=== PATIENT | female | born 1955 | race Caucasian/White ===

== ENCOUNTER 2019-08-20 12:38 | Emergency (ER) | payer BC ==
[~2019-08-20] VITALS: Ht 147.3 cm; Wt 48.0 kg
[2019-08-20 14:26] VITALS: BP 152/62
--- NOTE | 2019-08-20 14:55 | NUR ---
vasc at bedside.
--- NOTE | 2019-08-20 15:44 | NUR ---
MEDICAL RECORDS RELEASE FAXED TO [facility]OUS [facility]
[2019-08-20] MEDS ORDERED: OLANZapine 2.5MG tablet PO ONE (15:50)
[2019-08-20] MEDS ORDERED: RISP1TAB3 PO (16:47)
== END 2019-08-20 17:22 | disposition home or self-care (01) ==
LOC: ER 12:38
DX: S90.121A Contusion of right lesser toe(s) without damage to nail, initial encounter (principal); F31.60 Bipolar disorder, current episode mixed, unspecified; E11.9 Type 2 diabetes mellitus without complications; F31.9 Bipolar disorder, unspecified; Z98.890 Other specified postprocedural states; Z79.899 Other long term (current) drug therapy; X58.XXXA Exposure to other specified factors, initial encounter; Y93.89 Activity, other specified; Y92.89 Other specified places as the place of occurrence of the external cause; Y99.8 Other external cause status
CPT/HCPCS: 73660; 82948; 93922; 99284

== ENCOUNTER 2019-08-27 10:42 | Emergency (ER) | payer BC ==
[~2019-08-27] VITALS: Ht 149.9 cm; Wt 76.4 kg
[~2019-08-27 10:42] MED LIST: RISP1TAB3 PO
[2019-08-27] MEDS: LORazepam 2 mg/ml vial IM ONE ×2 (10:55→11:49)
[2019-08-27] MEDS ORDERED: haloperidol lactate 5mg/ml inj IM ONE (10:55)
[2019-08-27] MEDS ORDERED: ziprasidone IM 20mg inj **IM only IM ONE (11:00)
[2019-08-27 11:20] LABS: BASOPHILS # (AUTO) 0.1 X10'3 (0-0.2); BASOPHILS % (AUTO) 1.2 % (0-1); EOSINOPHILS # (AUTO) 0.2 X10'3 (0-0.9); EOSINOPHILS % (AUTO) 3.7 % (0-6); HEMATOCRIT 40.4 % (35.0-45.0); HEMOGLOBIN 13.5 g/dl (12.0-16.0); LYMPHOCYTES # (AUTO) 0.8 X10'3 (1.1-4.8); LYMPHOCYTES % (AUTO) 17.7 % (21-51); MEAN CORPUSCULAR HEMOGLOBIN 28.9 PG (27.0-31.0); MEAN CORPUSCULAR HGB CONC 33.4 g/dL (33.0-36.5); MEAN CORPUSCULAR VOLUME 86.7 FL (78-98); MEAN PLATELET VOLUME 8.9 FL (7.4-10.4); MONOCYTES # (AUTO) 0.4 X10'3 (0-0.9); MONOCYTES % (AUTO) 8.4 % (2-12); NEUTROPHILS # (AUTO) 3.1 X10'3 (1.8-7.7); PLATELET COUNT 202 X10'3 (140-440); RED BLOOD COUNT 4.66 X10'6 (4.20-5.60); RED CELL DISTRIBUTION WIDTH 15.5 % (11.5-14.5); WHITE BLOOD COUNT 4.5 X10'3 (4.5-11.0)
[2019-08-27 11:31] LABS: CLARITY,URINE SLIGHTLY CLOUDY (Clear); COLOR,URINE YELLOW (Yellow); GLUCOSE, URINE NEGATIVE (Neg); KETONES,URINE 15 mg/dl (Neg); LEUKOCYTE ESTERASE ,URINE NEGATIVE (Neg); NITRITES, URINE POSITIVE (Neg); OCCULT BLOOD,URINE TRACE-INTACT (Neg); PROTEIN,URINE 30 mg/dl (Neg); UROBILINOGEN,URINE 0.2 E.U/dL (0.2-1.0)
[2019-08-27 11:32] LABS: ALANINE AMINOTRANSFERASE 34 U/L (12-78); ALBUMIN/GLOBULIN RATIO 1.1 (1.1-1.5); ALKALINE PHOSPHATASE 73 IU/L (46-116); ANION GAP 14 (8-16); ASPARTATE AMINO TRANSFERASE 29 U/L (10-37); BILIRUBIN,TOTAL 0.6 MG/DL (0.1-1.0); BLOOD UREA NITROGEN 23 MG/DL (7-18); BUN/CREATININE RATIO 17.2 (6.6-38.0); CHLORIDE 105 MMOL/L (99-107); CREATININE 1.34 MG/DL (0.40-0.90); GLUCOSE 224 MG/DL (70-104); POTASSIUM 4.2 MMOL/L (3.5-5.1); SODIUM 145 MMOL/L (135-145); TOTAL CARBON DIOXIDE 25.9 MMOL/L (24-32); TOTAL PROTEIN 7.5 G/DL (6.4-8.2); eGFR 40 ML/MIN
[2019-08-27 11:34] LABS: UA COLLECTION TYPE CLN CATCH MIDSTREAM
[2019-08-27 11:36] LABS: BACTERIA,URINE 4+ /HPF (Neg); MUCUS STRANDS NONE SEEN /LPF (Neg); RBC,URINE 0-2 /HPF (0-2); SQUAMOUS EPITHELIAL CELL,UR FEW /LPF (FEW); WBC CLUMPS,URINE FEW /HPF (NEGATIVE)
[2019-08-27 11:42] LABS: ETHANOL < 0.010 GM/DL (0.0-0.010)
[2019-08-27 11:44] LABS: URINE AMPHETAMINE SCREEN NEGATIVE (Neg); URINE BARBITUATE SCREEN NEGATIVE (Neg); URINE BENZODIAZEPINES SCREEN NEGATIVE (Neg); URINE CANNABINOID SCREEN POSITIVE (Neg); URINE COCAINE SCREEN NEGATIVE (Neg); URINE METHADONE SCREEN NEGATIVE (Neg); URINE OPIATE SCREEN POSITIVE (Neg); URINE PHENCYCLIDINE SCREEN NEGATIVE (Neg)
[2019-08-27] MEDS: cephalexin 500mg capsule PO SCH ×2 (12:02→21:15)
--- NOTE | 2019-08-27 12:17 | NUR ---
PT REFUSED ATIVAN, AGREED TO WEAR GREEN SCRUBS AFTER SECURITY CALLED TO ROOM.
--- NOTE | 2019-08-27 16:15 | NUR ---
Patient arrived from the main ER accompanied by RN. Ambulates herself, no distress observed. Patient is hyperverbal with some disorganized and pressures speech. She is tangential and does not answer assessment questions appropriately. She does not answer questions regarding home medications and history. Received in report she has a history of Bipolar dosirder. She is currently laying in bed talking to other patients, eating her lunch.
--- NOTE | 2019-08-27 17:50 | NUR ---
Patient is observed ambulating with walker from bathroom. Patient is now sitting on the edge of the bed and appears to be talking to herself/responding to internal stimuli.
[2019-08-27] MEDS ORDERED: RISP1TAB3 PO (18:37)
[2019-08-27] MEDS ORDERED: PRAV20TA4 PO (18:37)
[2019-08-27] MEDS ORDERED: GLIP5TAB13 PO (18:37)
[2019-08-27] MEDS ORDERED: LOSA25TA41 PO (18:37)
[2019-08-27] MEDS ORDERED: OXYB10TA30 PO (18:37)
[2019-08-27] MEDS ORDERED: TRAZ150T78 PO (18:37)
[2019-08-27] MEDS: oxybutynin 5mg tablet PO SCH (20:00)
[2019-08-27] MEDS ORDERED: diphenhydrAMINE 50 mg/ml inj IM ONE (21:00)
[2019-08-27] MEDS ORDERED: risperiDONE 0.5mg tablet PO SCH (21:00)
[2019-08-27] MEDS ORDERED: LORazepam 2 mg/ml vial IM ONE (21:00)
[2019-08-27] MEDS ORDERED: traZODone 150mg tablet PO SCH (21:00)
--- NOTE | 2019-08-27 22:00 | NUR ---
Patient increasingly agitated and argumentative. wants to go to the cafeteria, told her its closed and not possible. Didn't eat her dinner, just made a mess of it. Offered a sandwich, she refused. attempted to leave the unit, had to call security twice, IM medications ordered and administered. Patient now sleeping
--- NOTE | 2019-08-28 07:00 | NUR ---
Assisted pt up to bathroom. Pt uses walker. Waiting for breakfast.
[2019-08-28] MEDS ORDERED: losartan 25mg tablet PO SCH (08:00)
[2019-08-28] MEDS ORDERED: atorvastatin 10mg tablet PO SCH (08:00)
[2019-08-28] MEDS ORDERED: glipizide 5mg tablet PO SCH (08:00)
[2019-08-28] MEDS: cephalexin 500mg capsule PO SCH ×2 (08:33→12:42)
[2019-08-28] MEDS: oxybutynin 5mg tablet PO SCH (08:33)
[2019-08-28] MEDS ORDERED: insulin regular, human 10 units/0.1 ml syringe SQ ONE (08:50)
[2019-08-28] MEDS ORDERED: insulin regular, human U-100 3ml vial - multi-dose SQ ONE (08:55)
--- NOTE | 2019-08-28 09:00 | NUR ---
Pt ate all her breakfast and took all her meds. Received call from Chen in [facility] that they are looking at her and will let me know if they can accept her.
--- NOTE | 2019-08-28 10:14 | NUR ---
PATIENT HAS NUMEROUS REQUESTS FOR WARM FOOD AND COFFEE. UP OUT OF BED WITH WALKER AND UNSTEADY ON FEET, SHE IS NOT PAYING ATTENTION TO AMBULATING OR MOVING THE WALKER APPROPRIATELY. ASSISTED TO BATHROOM.
--- NOTE | 2019-08-28 11:00 | NUR ---
Pt continues to get up and use bathroom. Still not making much sense in her answers.
[2019-08-28] MEDS ORDERED: OLANZapine 2.5MG tablet PO PRN (12:05)
[2019-08-28] MEDS ORDERED: LORazepam 1 MG tablet PO PRN (12:05)
[2019-08-28] MEDS ORDERED: diphenhydrAMINE 25mg capsule PO PRN (12:05)
[2019-08-28 13:09] VITALS: BP 127/67
[2019-09-03] MEDS ORDERED: TRAZ150T78 PO (16:36)
[2019-09-03] MEDS ORDERED: ESCI10TA PO (16:36)
[2019-09-03] MEDS ORDERED: PRAV20TA4 PO (16:36)
[2019-09-03] MEDS ORDERED: PANT40TA4 PO (16:36)
[2019-09-03] MEDS ORDERED: GLIP5TAB13 PO (16:36)
[2019-09-03] MEDS ORDERED: OMEG1CAP PO (16:36)
[2019-09-03] MEDS ORDERED: LINA5TAB4 PO (16:36)
[2019-09-03] MEDS ORDERED: LOSA25TA41 PO (16:36)
[2019-09-03] MEDS ORDERED: RISP1TAB3 PO (16:36)
[2019-09-03] MEDS ORDERED: OXYB5TAB16 PO (16:36)
[2019-09-03] MEDS ORDERED: METF-950 PO (16:36)
[2019-09-03] MEDS ORDERED: ATI1T PO (16:36)
[2019-09-03] MEDS ORDERED: QUET100T33 PO (16:36)
[2019-09-03] MEDS ORDERED: LIDO700A47 TP (16:36)
== END 2019-08-28 13:13 ==
LOC: ER 10:43
DX: F30.9 Manic episode, unspecified (principal); F31.9 Bipolar disorder, unspecified; E11.9 Type 2 diabetes mellitus without complications; F12.90 Cannabis use, unspecified, uncomplicated; Z79.899 Other long term (current) drug therapy; Z91.14 Patient's other noncompliance with medication regimen
CPT/HCPCS: 36415; 80053; 80305; 80320; 81001; 82948; 84443; 85025; 96372; 99285; J1200; J2060; J3486; J1815

== ENCOUNTER 2019-09-08 11:12 | Emergency (ER) | payer BC ==
[~2019-09-08] VITALS: Ht 152.4 cm; Wt 49.1 kg
[~2019-09-08 11:12] MED LIST changes: +ATI1T PO; +ESCI10TA PO; +GLIP5TAB13 PO; +LIDO700A47 TP; +LINA5TAB4 PO; +LOSA25TA41 PO; +METF-950 PO; +OMEG1CAP PO; +OXYB5TAB16 PO; +PANT40TA4 PO; +PRAV20TA4 PO; +QUET100T33 PO; +TRAZ150T78 PO
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
[2019-09-08 12:51] LABS: BASOPHILS # (AUTO) 0.1 X10'3 (0-0.2); EOSINOPHILS # (AUTO) 0.2 X10'3 (0-0.9); EOSINOPHILS % (AUTO) 2.4 % (0-6); HEMOGLOBIN 12.7 g/dl (12.0-16.0); LYMPHOCYTES # (AUTO) 1.2 X10'3 (1.1-4.8); LYMPHOCYTES % (AUTO) 18.5 % (21-51); MEAN CORPUSCULAR HEMOGLOBIN 29.2 PG (27.0-31.0); MEAN CORPUSCULAR HGB CONC 33.4 g/dL (33.0-36.5); MEAN CORPUSCULAR VOLUME 87.4 FL (78-98); MEAN PLATELET VOLUME 8.7 FL (7.4-10.4); MONOCYTES # (AUTO) 0.4 X10'3 (0-0.9); MONOCYTES % (AUTO) 6.7 % (2-12); NEUTROPHILS # (AUTO) 4.6 X10'3 (1.8-7.7); NEUTROPHILS % (AUTO) 71.4 % (42-75); PLATELET COUNT 187 X10'3 (140-440); RED BLOOD COUNT 4.35 X10'6 (4.20-5.60); RED CELL DISTRIBUTION WIDTH 14.5 % (11.5-14.5); WHITE BLOOD COUNT 6.4 X10'3 (4.5-11.0)
--- NOTE | 2019-09-08 13:10 | NUR ---
walked pt from [facility] bed 13 in the Er over to bed 23 in overflow without incident, all of her belongings went with her
[2019-09-08 13:13] LABS: ALANINE AMINOTRANSFERASE 27 U/L (12-78); ALBUMIN 3.7 G/DL (3.4-5.0); ALKALINE PHOSPHATASE 107 IU/L (46-116); ANION GAP 8 (8-16); ASPARTATE AMINO TRANSFERASE 24 U/L (10-37); BILIRUBIN,TOTAL 0.3 MG/DL (0.1-1.0); BLOOD UREA NITROGEN 36 MG/DL (7-18); BUN/CREATININE RATIO 25.2 (6.6-38.0); CALCIUM 10.1 MG/DL (8.5-10.1); CHLORIDE 102 MMOL/L (99-107); CREATININE 1.43 MG/DL (0.40-0.90); ETHANOL < 0.010 GM/DL (0.0-0.010); GLUCOSE 304 MG/DL (70-104); POTASSIUM 4.1 MMOL/L (3.5-5.1); SODIUM 137 MMOL/L (135-145); TOTAL CARBON DIOXIDE 27.5 MMOL/L (24-32); TOTAL PROTEIN 7.5 G/DL (6.4-8.2); eGFR 37 ML/MIN
[2019-09-08] MEDS ORDERED: normal saline 1000ML IV soln IVB ONE (13:25)
[2019-09-08] MEDS ORDERED: insulin regular, human 10 units/0.1 ml syringe SQ ONE ×2 (13:25→20:40)
[2019-09-08] MEDS ORDERED: insulin regular, human U-100 3ml vial - multi-dose SQ ONE ×2 (13:35→20:40)
[2019-09-08 15:09] LABS: URINE HCG NEGATIVE (NEG)
[2019-09-08 15:21] LABS: URINE AMPHETAMINE SCREEN NEGATIVE (Neg); URINE BARBITUATE SCREEN NEGATIVE (Neg); URINE BENZODIAZEPINES SCREEN NEGATIVE (Neg); URINE CANNABINOID SCREEN POSITIVE (Neg); URINE COCAINE SCREEN NEGATIVE (Neg); URINE METHADONE SCREEN NEGATIVE (Neg); URINE OPIATE SCREEN NEGATIVE (Neg); URINE PHENCYCLIDINE SCREEN NEGATIVE (Neg)
--- NOTE | 2019-09-08 15:26 | NUR ---
Patient became loud, cussing. Patient was redirected. 1 liter fluid infused. 5 units of regular insulin given. Patient complaining of neck pain, Deny ordered.
[2019-09-08] MEDS ORDERED: naproxen sodium 220mg tablet PO SCH (15:35)
[2019-09-08] MEDS ORDERED: naproxen sodium 220mg tablet PO ONE (15:35)
--- NOTE | 2019-09-08 15:59 | NUR ---
SENT PACKET [facility]
--- NOTE | 2019-09-08 16:48 | NUR ---
Patient up to restroom.
[2019-09-08] MEDS ORDERED: LINA5TAB4 PO (17:38)
[2019-09-08] MEDS ORDERED: QUET-1 PO (17:38)
[2019-09-08] MEDS ORDERED: ESCI5SOL4 PO (17:38)
[2019-09-08] MEDS ORDERED: METF500T PO (17:38)
[2019-09-08] MEDS ORDERED: TRAZ-251 PO (17:38)
[2019-09-08] MEDS ORDERED: LORA-269 PO ×2 (17:38)
[2019-09-08] MEDS ORDERED: LOSA25TA41 PO (17:38)
[2019-09-08] MEDS ORDERED: GLIP5TAB13 PO (17:38)
[2019-09-08] MEDS ORDERED: PRAV20TA4 PO (17:38)
[2019-09-08] MEDS ORDERED: OMEG1CAP PO (17:38)
[2019-09-08] MEDS ORDERED: LIDO1ADH TOP (17:38)
[2019-09-08] MEDS ORDERED: PANT-47 PO (17:38)
[2019-09-08] MEDS: quetiapine 100mg tablet PO PRN (20:44)
[2019-09-08] MEDS: OMEGA-3/DHA/EPA/FISH OIL 1 EACH CAPSULE.DR PO SCH (20:44)
[2019-09-08] MEDS: traZODone 50mg tablet PO SCH (20:45)
--- NOTE | 2019-09-08 20:52 | NUR ---
The patient has been restless and talking nonstop even when no one is engaging with her. She was evaluated by [facility]. She denies A/V hallucinations. She states she does feel manic "but not to the point of granduer" She is intrussive with staff and peers. She does accept redirection.
--- NOTE | 2019-09-08 21:22 | NUR ---
The patient is resting on her bed and talking to herself
--- NOTE | 2019-09-09 00:04 | NUR ---
The patient appears to be sleeping
--- NOTE | 2019-09-09 02:33 | NUR ---
The patient appears to be sleeping
--- NOTE | 2019-09-09 04:33 | NUR ---
The patient is awake and had been incontinent of urine. She is up to the bathroom to change and bath. Bed linens changed
--- NOTE | 2019-09-09 05:14 | NUR ---
The patient appears to be sleeping
--- NOTE | 2019-09-09 07:00 | NUR ---
Pt is lying in bed, appears to be sleeping.
[2019-09-09] MEDS: atorvastatin 10mg tablet PO SCH (08:20)
[2019-09-09] MEDS: metFORMIN 500mg tablet PO SCH ×2 (08:20→17:24)
[2019-09-09] MEDS: glipizide 5mg tablet PO SCH (08:21)
[2019-09-09] MEDS: linagliptin 5mg tablet PO SCH (08:21)
[2019-09-09] MEDS: pantoprazole 40mg Tablet.DR PO SCH (08:21)
[2019-09-09] MEDS: losartan 25mg tablet PO SCH (08:22)
[2019-09-09] MEDS: LORazepam 1 MG tablet PO PRN (08:22)
[2019-09-09] MEDS: OMEGA-3/DHA/EPA/FISH OIL 1 EACH CAPSULE.DR PO SCH ×2 (08:22→20:55)
[2019-09-09] MEDS: ESCITALOPRAM OXALATE 5 MG TABLET PO SCH (08:22)
[2019-09-09] MEDS: quetiapine 100mg tablet PO PRN ×3 (08:22→21:17)
[2019-09-09] MEDS: LIDOcaine 5% patch TP SCH (08:29)
--- NOTE | 2019-09-09 09:00 | NUR ---
Pt alert, animated, hyperverbal, circumstantial, denies SI/AH/VH/HI. Pt admits to depression, "because I'm in pain." Pt has many somatic complaints. Pt cooperative with morning meds. Medicated with prn Seroquel and Ativan. Pt's [facility] AC breakfast was 198. Pt ambulates safely to the bathroom with FWW
--- NOTE | 2019-09-09 11:00 | NUR ---
Pt is lying in bed on her left side, appears to be sleeping.
--- NOTE | 2019-09-09 13:00 | NUR ---
Pt agitated, yelling about the potatoes and carrots on her lunch tray not being cooked enough. Also stated that it was cold. Food had just arrived from the kitchen. Pt refused to eat her lunch. Pt asked for a sandwich. A turkey sandwich was provided.
--- NOTE | 2019-09-09 13:28 | NUR ---
Prn Seroquel 100 mg administered for agitation.
--- NOTE | 2019-09-09 15:28 | NUR ---
Pt lying in bed on her back with HOB elevated in [place] per her request.
--- NOTE | 2019-09-09 17:01 | NUR ---
Pt is lying in bed on her right side with her feet hanging over the side of the bed with one foot on the ground. Pt does not appear at risk of falling.
--- NOTE | 2019-09-09 20:00 | NUR ---
One to one with the patient to assess severity of manic symptoms. The patient continues to be hyperverbal and her replies are circumstantial and difficult to follow her train of thought.
[2019-09-09] MEDS: traZODone 50mg tablet PO SCH (20:54)
--- NOTE | 2019-09-09 21:54 | NUR ---
The patient appears to be sleeping
--- NOTE | 2019-09-09 23:53 | NUR ---
The patient appears to be sleeping.
--- NOTE | 2019-09-10 00:50 | NUR ---
The patient is awake and talking nonstop and intrussive up at the nursing station.
--- NOTE | 2019-09-10 04:03 | NUR ---
The patient appears to be sleeping
--- NOTE | 2019-09-10 04:58 | NUR ---
The patient is awake and frequently up to the nursing station to make demands. She currently is accecpting redirection.
[2019-09-10] MEDS: ESCITALOPRAM OXALATE 5 MG TABLET PO SCH (07:13)
[2019-09-10] MEDS: glipizide 5mg tablet PO SCH (07:13)
[2019-09-10] MEDS: metFORMIN 500mg tablet PO SCH ×2 (07:13→18:00)
[2019-09-10] MEDS: losartan 25mg tablet PO SCH (07:13)
[2019-09-10] MEDS: atorvastatin 10mg tablet PO SCH (07:13)
[2019-09-10] MEDS: linagliptin 5mg tablet PO SCH (07:13)
[2019-09-10] MEDS: pantoprazole 40mg Tablet.DR PO SCH (07:13)
[2019-09-10] MEDS: LIDOcaine 5% patch TP SCH (07:14)
--- NOTE | 2019-09-10 07:41 | NUR ---
Asleep respirations even and unlabored took meds this morning accucheck 166
[2019-09-10] MEDS: OMEGA-3/DHA/EPA/FISH OIL 1 EACH CAPSULE.DR PO SCH ×2 (07:59→20:07)
--- NOTE | 2019-09-10 08:00 | NUR ---
sleeping no distress
--- NOTE | 2019-09-10 09:13 | NUR ---
resting in bed eating
--- NOTE | 2019-09-10 10:00 | NUR ---
in bed resting
--- NOTE | 2019-09-10 11:00 | NUR ---
resting in bed
--- NOTE | 2019-09-10 12:00 | NUR ---
resting in bed
--- NOTE | 2019-09-10 13:16 | NUR ---
Talked to Dr Vergara about blood sugar of 66 and asked if he wanted me to give her anything like dextrose or glucose. Said to give her some juice. I gave patient some orange juice her lunch oer Dr Vergara. Addendum: 09/10/19 at 1413 by DARREN Rechecked blood sugar new result, "120"
--- NOTE | 2019-09-10 14:00 | NUR ---
in bed talking out loud
[2019-09-10] MEDS: LORazepam 1 MG tablet PO PRN (14:11)
--- NOTE | 2019-09-10 15:00 | NUR ---
resting in bed
--- NOTE | 2019-09-10 16:00 | NUR ---
talking obscenities in bed
--- NOTE | 2019-09-10 18:03 | NUR ---
resting in bed
[2019-09-10] MEDS: traZODone 50mg tablet PO SCH (20:08)
--- NOTE | 2019-09-10 22:08 | NUR ---
Pt is sleeping, no s/s of distress noted.
--- NOTE | 2019-09-11 02:43 | NUR ---
Pt is sleeping, no s/s of distress noted.
--- NOTE | 2019-09-11 07:00 | NUR ---
asleep no resp issues
[2019-09-11] MEDS: OMEGA-3/DHA/EPA/FISH OIL 1 EACH CAPSULE.DR PO SCH ×2 (07:27→19:46)
[2019-09-11] MEDS: LIDOcaine 5% patch TP SCH (07:27)
[2019-09-11] MEDS: losartan 25mg tablet PO SCH (07:28)
[2019-09-11] MEDS: glipizide 5mg tablet PO SCH (07:28)
[2019-09-11] MEDS: metFORMIN 500mg tablet PO SCH ×2 (07:28→17:18)
[2019-09-11] MEDS: ESCITALOPRAM OXALATE 5 MG TABLET PO SCH (07:28)
[2019-09-11] MEDS: linagliptin 5mg tablet PO SCH (07:28)
[2019-09-11] MEDS: atorvastatin 10mg tablet PO SCH (07:28)
[2019-09-11] MEDS: pantoprazole 40mg Tablet.DR PO SCH (07:28)
--- NOTE | 2019-09-11 09:01 | NUR ---
resting in bed
--- NOTE | 2019-09-11 10:00 | NUR ---
asleep no resp issues
--- NOTE | 2019-09-11 12:03 | NUR ---
asleep no resp issues
--- NOTE | 2019-09-11 12:47 | NUR ---
Patient is upset that I told her per unit policies I could not give her her belongings back until she is discharged. Also, is upset that I told her I could only give her markers and/or crayons for writing and not pens as per unit policy.
--- NOTE | 2019-09-11 12:54 | NUR ---
relieving RN for break, pt is resting quietly on bed
--- NOTE | 2019-09-11 13:25 | NUR ---
sitting in bed
--- NOTE | 2019-09-11 14:00 | NUR ---
in the restroom
--- NOTE | 2019-09-11 15:02 | NUR ---
resting in bed
--- NOTE | 2019-09-11 17:21 | NUR ---
sitting on walker
--- NOTE | 2019-09-11 18:02 | NUR ---
resting in bed
--- NOTE | 2019-09-11 18:58 | NUR ---
Patient was ambulatory at shift change using a walker. Patient ambulated to the bathroom to void without a problem. Patient took a phone call from her son who is a behavioral healt tech in [place]. Patient ate a full dinner and is now resting quietly in bed in a mid fowlers position.
--- NOTE | 2019-09-11 19:13 | NUR ---
Patient is being evaluated by [facility] at this time.
[2019-09-11] MEDS: quetiapine 100mg tablet PO PRN (19:46)
--- NOTE | 2019-09-11 19:58 | NUR ---
Patient is eating eva crackers and drinking milk. Patient exhibits anxiety and is tangential. Seroquel will be given for anxiety. Patient is medication compliant.
[2019-09-11] MEDS: traZODone 50mg tablet PO SCH (20:01)
--- NOTE | 2019-09-11 20:12 | NUR ---
Patient is resting quietly in bed, she is reading a book.
--- NOTE | 2019-09-12 00:33 | NUR ---
Patient is sleeping on her left side in bed. In view from nursing station.
--- NOTE | 2019-09-12 02:31 | NUR ---
Patient is up to bathroom to void. Patient ambulates using a walker. Slow gait, no difficulty. Patient returns to bed.
--- NOTE | 2019-09-12 03:30 | NUR ---
Patient sleeping low fowlers position in bed.
--- NOTE | 2019-09-12 04:45 | NUR ---
Patient is awake reading her bible. No distress.
--- NOTE | 2019-09-12 05:55 | NUR ---
Patient is sleeping low fowlers in bed.
[2019-09-12] MEDS: metFORMIN 500mg tablet PO SCH ×2 (08:07→17:09)
[2019-09-12] MEDS: pantoprazole 40mg Tablet.DR PO SCH (08:07)
[2019-09-12] MEDS: losartan 25mg tablet PO SCH (08:08)
[2019-09-12] MEDS: atorvastatin 10mg tablet PO SCH (08:08)
[2019-09-12] MEDS: linagliptin 5mg tablet PO SCH (08:08)
[2019-09-12] MEDS: glipizide 5mg tablet PO SCH (08:12)
[2019-09-12] MEDS: LIDOcaine 5% patch TP SCH (08:18)
[2019-09-12] MEDS: OMEGA-3/DHA/EPA/FISH OIL 1 EACH CAPSULE.DR PO SCH ×2 (08:18→20:47)
[2019-09-12] MEDS: ESCITALOPRAM OXALATE 5 MG TABLET PO SCH (08:18)
--- NOTE | 2019-09-12 11:15 | NUR ---
Recieved report from ARIAS Oneal, assumed care. Pt. laying in bed coloring. nad noted at this time.
--- NOTE | 2019-09-12 13:37 | NUR ---
Pt. up to nurses station using walker. wants to call , pt. given phone and 's phone number.
--- NOTE | 2019-09-12 18:30 | NUR ---
PT SITTIN BED WITH BIBLE IN HAND . [facility] CONTACT COROPORTTIVE , IN TH EDIRECT LINE OF SIGHT OF NURSING STAFF
--- NOTE | 2019-09-12 18:30 | NUR ---
ARIAS SAXENA REPORTED BLOOD SUGAR AT 107
--- NOTE | 2019-09-12 18:59 | NUR ---
Pt in bathroom asked for diaper for the evening for extra protection . Brought patient some perry underpants and a kotex as diaper was too large
--- NOTE | 2019-09-12 19:30 | NUR ---
PT RESTING PEACFULLY IN BED . ATE 100 % OF DINNER READING HER BIBLE IN THE DIRECT LINE OF SITE OF NURSING STAFF
--- NOTE | 2019-09-12 20:00 | NUR ---
pt reports that she has" concerns about her being depressed and would like day shift rn to check on him as of now hes sleeping " his number is [phone]
--- NOTE | 2019-09-12 20:30 | NUR ---
PT RESTING IN BED WITH HOB ELEVATED 90 DEGREES READING BIBLE . IN THE DIRECT LINE OF SIGHT OF NURSING STAFF
[2019-09-12] MEDS: traZODone 50mg tablet PO SCH (20:49)
--- NOTE | 2019-09-12 21:07 | NUR ---
PT UP OUT OF BED TO BATHROOM WITH WALKER
--- NOTE | 2019-09-12 22:27 | NUR ---
lowered hob to flat per pt request . pt resting on her right side resp even and unlabored will continue to monitor and reassess as needed
--- NOTE | 2019-09-12 23:08 | NUR ---
PT ASKED TO GO TO BATHROOM WHEELED PATIENT TO BATHROOM ON HER WALKER
--- NOTE | 2019-09-12 23:18 | NUR ---
pt wheeeled back to her room
--- NOTE | 2019-09-12 23:51 | NUR ---
Pt c/o of having a hard time sleeping. asking for earplugs
--- NOTE | 2019-09-13 00:47 | NUR ---
pt currently sleeping supine resp even and unlabored
[2019-09-13] MEDS: quetiapine 100mg tablet PO PRN (01:47)
--- NOTE | 2019-09-13 01:54 | NUR ---
PT AWAKE STARTING TO GET AGITATED BECAUSE SHE CANT SLEEP . PT NOW HAS EAR
--- NOTE | 2019-09-13 02:00 | NUR ---
MEDICATED PATIENT WITH SERAQUEL DUE TO AGITATION OF NOT BEING ABLE TO SLEEP IN THE MAIN ER. PT REQUESTED EAR PLUGS AND WAS ACCOMIDATED . PT ALSO WAS GIVEN AN EYE SHILED TO HELP FILTER LIGHT . PT DISCUSSED HOW HARD IT IS TO SLEEP IN [facility] MAIN ER AND ASKINGTO BE MOVED BACK TO OVERFLOW. EDUCATED PATIENT THAT OF WAS NOT OPEN AND THAT THIS EVENING SHE WILL HAVE TO SATY IN ROOM 16 . PT FRUSTRATED BY COROPORATIVE
--- NOTE | 2019-09-13 03:10 | NUR ---
PT SLEEPING PEACFULLY SUPINE. RESP EVEN AND UNLABORED
--- NOTE | 2019-09-13 04:13 | NUR ---
PT SLEEPING PEACFULLY SUPINE NO CHANGES TO PREVIOUS ASSESSMENTS RESP EVEN AND UNLABORED . WILL CONTINUE TO MONITOR AND REASSESS
--- NOTE | 2019-09-13 05:19 | NUR ---
PT SLEEPING PEACFULLY IN BED, SUPIN. RESP EVEN AND UNLABORED PTIN THE DIRECT LINE OF SIGHT OF NURSING STAFF.
[2019-09-13] MEDS: glipizide 5mg tablet PO SCH (07:25)
[2019-09-13] MEDS: linagliptin 5mg tablet PO SCH (07:25)
[2019-09-13] MEDS: ESCITALOPRAM OXALATE 5 MG TABLET PO SCH (07:25)
[2019-09-13] MEDS: pantoprazole 40mg Tablet.DR PO SCH (07:25)
[2019-09-13] MEDS: metFORMIN 500mg tablet PO SCH ×2 (07:25→17:33)
[2019-09-13] MEDS: losartan 25mg tablet PO SCH (07:26)
[2019-09-13] MEDS: atorvastatin 10mg tablet PO SCH (07:26)
[2019-09-13] MEDS: OMEGA-3/DHA/EPA/FISH OIL 1 EACH CAPSULE.DR PO SCH ×2 (07:26→20:01)
[2019-09-13] MEDS: LIDOcaine 5% patch TP SCH ×2 (07:36→07:48)
--- NOTE | 2019-09-13 08:40 | NUR ---
Pt sitting in room at this time eating breakfast. No s/s of distress. Pt in direct line of sight of nursing staff.
--- NOTE | 2019-09-13 09:35 | NUR ---
pt moved, in her hospital bed, from room 16 in main ER to bed 23 in overflow, by RN and tech, without incident. Pt is verbal and demanding throughout transfer
--- NOTE | 2019-09-13 10:01 | NUR ---
Note jose ftemo in EDM - 09/13/19 at 1100 by [email or web address] MINA Lorenzana, at bedside, to meghan pt, pt is somulent, states name is Tracey and has no last name. States he is unsure of how he got to [place] and doesn't know what he is looking for as far as help, states he lives "nowhere"
--- NOTE | 2019-09-13 10:01 | NUR ---
Note jose fetmo in ED - 09/13/19 at 1101 by [email or web address] MINA Lorenzana, at bedside, to meghan pt, pt is somulent, states name is Tracey and has no last name. States he is unsure of how he got to [place] and doesn't know what he is looking for as far as help, states he lives "nowhere"
--- NOTE | 2019-09-13 10:59 | NUR ---
pt is supine in bed, asleep, regular breathing, present, no agitation observed
--- NOTE | 2019-09-13 11:55 | NUR ---
pt sitting up in bed, talked to her for last 30 mins, she is all over the place with conversation that doesn't make any sense, she is now up to the bathroom, with basin and wash cloths etc to bathe with as well as change of clothing
--- NOTE | 2019-09-13 12:55 | NUR ---
Pt is up pacing around and up to nursing station to talk about everything she can think of from her past
--- NOTE | 2019-09-13 13:26 | NUR ---
Patient asked if we could call her . Unable to reach her so patient requested to leave a message on his voice mail. Patient is now sitting on her bed. Mumbling, "I am an adult, not a child. I know when I take my own medications." Patient talking to herself stating, "You need to ask them to get a doctor to see me, its in the chart that no one has seen me."
--- NOTE | 2019-09-13 13:50 | NUR ---
spoke to Dr Mendoza re: pt states she has been requesting xrays since she arrived here last week, he states that she did not say anything about this when he saw her this morning, he is aware that she can ambulate with no difficulty or pain with "her broken leg" he states he will see her again before he leave
--- NOTE | 2019-09-13 14:25 | NUR ---
Dr Mendoza at bedside, pt calmly explaining why she needs Xrays
[2019-09-13] MEDS: LORazepam 1 MG tablet PO PRN (14:56)
--- NOTE | 2019-09-13 15:08 | NUR ---
pt is laying in bed talking and talking, X ray here to take pt for views
--- NOTE | 2019-09-13 16:00 | NUR ---
pt is up and threatning staff, keeps coming up to nurses station with different demands
--- NOTE | 2019-09-13 16:56 | NUR ---
pt rcvd phone call from , much more calm
--- NOTE | 2019-09-13 19:30 | NUR ---
Pt reading at shift change. Independently ate all her meal, then requested a small for when she goes to bed. Pt is pleasant and cooperative, but tangential and circumstantial in her thought process. She is unable to provide detail as to why she is here currently, claiming it's a misunderstanding. Pt called her and left a message. Pt denies all signs and symptoms stating she just needs to get a psych MD then return home. Pt told many stories relating to her life and needed to be redirected back to assessment questions. She is polite.
[2019-09-13] MEDS: quetiapine 100mg tablet PO SCH (20:59)
[2019-09-13] MEDS: traZODone 50mg tablet PO SCH (20:59)
--- NOTE | 2019-09-13 22:13 | NUR ---
Pt sleeping, no signs of distress noted. Will continue to monitor.
--- NOTE | 2019-09-14 00:34 | NUR ---
Pt sleeping with eye mask, and snoring intermittently. Changing positions intermittently, no distress noted.
--- NOTE | 2019-09-14 02:16 | NUR ---
Pt sleeping, respirations even and unlabored. Will continue to monitor.
--- NOTE | 2019-09-14 05:00 | NUR ---
Pt sleeping, lightly snoring. Up once to use the restroom then returned to sleep.
--- NOTE | 2019-09-14 07:23 | NUR ---
Pt continues to rest, equal and unlabored respirations observed.
[2019-09-14] MEDS: LIDOcaine 5% patch TP SCH (08:00)
[2019-09-14] MEDS: glipizide 5mg tablet PO SCH (08:23)
[2019-09-14] MEDS: ESCITALOPRAM OXALATE 5 MG TABLET PO SCH (08:24)
[2019-09-14] MEDS: pantoprazole 40mg Tablet.DR PO SCH (08:24)
[2019-09-14] MEDS: atorvastatin 10mg tablet PO SCH (08:24)
[2019-09-14] MEDS: metFORMIN 500mg tablet PO SCH ×2 (08:26→17:23)
[2019-09-14] MEDS: losartan 25mg tablet PO SCH (08:26)
[2019-09-14] MEDS: OMEGA-3/DHA/EPA/FISH OIL 1 EACH CAPSULE.DR PO SCH ×2 (08:26→20:38)
[2019-09-14] MEDS: linagliptin 5mg tablet PO SCH (08:27)
--- NOTE | 2019-09-14 09:10 | NUR ---
Phone called attempted for pt as pt wanting to speak with spouse. Phone was unanswered and pt left msg on machine.
--- NOTE | 2019-09-14 10:49 | NUR ---
Phone given and pt called spouse and left msg on machine.
--- NOTE | 2019-09-14 14:30 | NUR ---
pt. in bed reading quietly, no sign of distress, respirations WNL
--- NOTE | 2019-09-14 14:45 | NUR ---
Pt. yelling at the pt. in bed 24 for "talking constantly and using foul language". Pt. advised she is not allowed to yell at other patients. The pt. in bed 24 has been moved to de-escalate the situation.
--- NOTE | 2019-09-14 16:18 | NUR ---
Pt. sitting quietly in bed reading, respirations WNL, no signs of distress.
[2019-09-14 17:12] VITALS: BP 111/70
--- NOTE | 2019-09-14 18:10 | NUR ---
Pt. seen by [facility]. [facility] will be renewing [phone] for pt.
--- NOTE | 2019-09-14 20:23 | NUR ---
Spoke with Laila BIANCHI, from [facility] about a possible placement for pt., per Laila BIANCHI this facility requires a negative Covid-19 test before they are able to accept a pt. Spoke with cheese packer to facilitate Covid-19 test. Addendum: 09/14/19 at [address] [facility] contact number [phone]
[2019-09-14] MEDS: quetiapine 100mg tablet PO SCH (20:38)
[2019-09-14] MEDS: traZODone 50mg tablet PO SCH (20:38)
--- NOTE | 2019-09-14 21:37 | NUR ---
[facility] called, pt. has placement, Dr. Downey @ [place] in [facility] accepted pt. at 2130, pt. will be picked up 09/15/19 in the morning. Will need to have negative Covid-19 test result faxed to [facility].
--- NOTE | 2019-09-14 23:35 | NUR ---
Pt. at nurses station angerly talking with raised voice about "requests for my food choices from the cafeteria", pt. angery that she is unable to have her perfered brand of salad dressing. Pt. advised that she has been repeatedly told that staff has no control over the brand of salad dressing or other meal tray item specifics, and that her yelling at the nurses station is unacceptable behavior. Pt. instructed to lower voice and return to her bed. Pt. then yelled at staff "well you fuck off and ". Pt. then returned to her bed on her own.
--- NOTE | 2019-09-14 23:58 | NUR ---
Pt. in bed talking to self
--- NOTE | 2019-09-15 01:05 | NUR ---
Pt. remains aggitated, cursing at staff, pt. has been offered ativan to help her calm down and sleep.
[2019-09-15] MEDS: LORazepam 1 MG tablet PO PRN (01:06)
--- NOTE | 2019-09-15 01:41 | NUR ---
pt irritible with staff while this RN received report, pt states "you need to keep it down, your voice carries and I can't sleep. this isn't the ER, this is the other side. you two need to be quiet." apologized to pt and pt now resting eyes without issue.
--- NOTE | 2019-09-15 02:15 | NUR ---
pt ambulated to bathroom with walker without issue. pt then ambulated self back to bedside. lowered bed to supine per pt request. pt now sitting back at bedside
--- NOTE | 2019-09-15 02:30 | NUR ---
pt appears to be sleeping lying on left side. pt in supine position. respirations even and unlabored, no s/s distress at this time
--- NOTE | 2019-09-15 03:31 | NUR ---
pt appears to be sleeping lying on right side. pt in supine position. respirations even and unlabored, no s/s distress at this time
--- NOTE | 2019-09-15 04:43 | NUR ---
pt appears to be sleeping lying on left side. pt in supine position. respirations even and unlabored, no s/s distress at this time
--- NOTE | 2019-09-15 05:48 | NUR ---
pt appears to be sleeping lying on left side. pt in supine position. respirations even and unlabored, no s/s distress at this time
[2019-09-15] MEDS: metFORMIN 500mg tablet PO SCH (07:39)
[2019-09-15] MEDS: ESCITALOPRAM OXALATE 5 MG TABLET PO SCH (07:39)
[2019-09-15] MEDS: OMEGA-3/DHA/EPA/FISH OIL 1 EACH CAPSULE.DR PO SCH (07:39)
[2019-09-15] MEDS: pantoprazole 40mg Tablet.DR PO SCH (07:40)
[2019-09-15] MEDS: losartan 25mg tablet PO SCH (07:40)
[2019-09-15] MEDS: linagliptin 5mg tablet PO SCH (07:40)
[2019-09-15] MEDS: atorvastatin 10mg tablet PO SCH (07:40)
[2019-09-15] MEDS: LIDOcaine 5% patch TP SCH (07:40)
[2019-09-15] MEDS: glipizide 5mg tablet PO SCH (07:40)
== END 2019-09-15 09:12 ==
LOC: ER 11:13
DX: E11.65 Type 2 diabetes mellitus with hyperglycemia (principal); F31.9 Bipolar disorder, unspecified; M79.672 Pain in left foot; F17.200 Nicotine dependence, unspecified, uncomplicated; F12.90 Cannabis use, unspecified, uncomplicated; Z98.890 Other specified postprocedural states; Z72.89 Other problems related to lifestyle; Z88.0 Allergy status to penicillin; Z79.899 Other long term (current) drug therapy
CPT/HCPCS: 36415; 80053; 80305; 80320; 81025; 82948; 85025; 87635; 96372; 99285; C9803; J1815; J7030

== ENCOUNTER 2020-07-29 20:15 | Inpatient (IN) | payer OTHER, MEDICAID ==
[~2020-07-29] VITALS: Ht 152.4 cm; Wt 77.7 kg
[~2020-07-29 20:15] MED LIST changes: -ATI1T PO; -ESCI10TA PO; +ESCI5SOL4 PO; +LIDO1ADH TOP; -LIDO700A47 TP; +LORA-269 PO; -METF-950 PO; +METF500T PO; -OXYB5TAB16 PO; +PANT-47 PO; -PANT40TA4 PO; +QUET-1 PO; -QUET100T33 PO; -RISP1TAB3 PO; +TRAZ-251 PO; -TRAZ150T78 PO
[2020-07-29 20:39] LABS: BASOPHILS % (AUTO) 0.6 % (0-1); EOSINOPHILS # (AUTO) 0.3 X10'3 (0-0.9); EOSINOPHILS % (AUTO) 3.2 % (0-6); HEMATOCRIT 36.4 % (35.0-45.0); HEMOGLOBIN 12.6 g/dl (12.0-16.0); LYMPHOCYTES # (AUTO) 1.5 X10'3 (1.1-4.8); LYMPHOCYTES % (AUTO) 17.8 % (21-51); MEAN CORPUSCULAR HEMOGLOBIN 30.3 PG (27.0-31.0); MEAN CORPUSCULAR HGB CONC 34.6 g/dL (33.0-36.5); MEAN CORPUSCULAR VOLUME 87.5 FL (78-98); MEAN PLATELET VOLUME 7.7 FL (7.4-10.4); MONOCYTES # (AUTO) 0.4 X10'3 (0-0.9); NEUTROPHILS # (AUTO) 6.4 X10'3 (1.8-7.7); NEUTROPHILS % (AUTO) 73.4 % (42-75); PLATELET COUNT 158 X10'3 (140-440); RED BLOOD COUNT 4.16 X10'6 (4.20-5.60); RED CELL DISTRIBUTION WIDTH 13.1 % (11.5-14.5); WHITE BLOOD COUNT 8.7 X10'3 (4.5-11.0)
[2020-07-29 20:54] LABS: ALANINE AMINOTRANSFERASE 25 U/L (12-78); ALBUMIN 3.7 G/DL (3.4-5.0); ALBUMIN/GLOBULIN RATIO 1.2 (1.1-1.5); ALKALINE PHOSPHATASE 66 IU/L (46-116); ANION GAP 10 (8-16); ASPARTATE AMINO TRANSFERASE 17 U/L (10-37); BILIRUBIN,TOTAL 0.2 MG/DL (0.1-1.0); BLOOD UREA NITROGEN 27 MG/DL (7-18); BUN/CREATININE RATIO 20.8 (6.6-38.0); CALCIUM 8.6 MG/DL (8.5-10.1); CHLORIDE 103 MMOL/L (99-107); GLUCOSE 189 MG/DL (70-104); POTASSIUM 4.5 MMOL/L (3.5-5.1); SODIUM 137 MMOL/L (135-145); TOTAL CARBON DIOXIDE 23.8 MMOL/L (24-32); TOTAL PROTEIN 6.7 G/DL (6.4-8.2); eGFR 41 ML/MIN
[2020-07-29] MEDS ORDERED: temazepam 15mg capsule PO PRN (21:00)
[2020-07-29] MEDS ORDERED: aminophylline 250mg/10ml inj. IV PRN (21:50)
[2020-07-29] MEDS ORDERED: potassium Cl 20 mEq SR tablet PO PRN ×2 (21:50)
[2020-07-29] MEDS ORDERED: ondansetron/PF 4mg/2ml inj IV PRN (21:50)
[2020-07-29] MEDS ORDERED: HYDROcodone/acetaminophen 5mg/325mg tablet PO PRN (21:50)
[2020-07-29] MEDS ORDERED: morphine 2 MG/ML inj. syringe IV PRN (21:50)
[2020-07-29] MEDS ORDERED: magnesium Cl slow-release 64mg tablet PO PRN (21:50)
[2020-07-29] MEDS ORDERED: mag hydrox/Alum hydrox/simeth 30ml oral suspension PO PRN (21:50)
[2020-07-29] MEDS ORDERED: magnesium 4gm in 100ml NS 100 ML IV PRN (21:50)
[2020-07-29] MEDS ORDERED: potassium Cl 40MEQ/1/2NS 520ml 520 ML IV PRN ×2 (21:50)
[2020-07-29] MEDS ORDERED: acetaminophen 325mg tablet PO PRN ×2 (21:50)
[2020-07-29] MEDS: normal saline 1000ml 1,000 ML IV SCH (21:50)
[2020-07-29] MEDS ORDERED: regadenoson 0.4mg/5ml syringe IV ONE (21:50)
[2020-07-29] MEDS ORDERED: metoprolol tartrate 1mg/ml inj IV PRN (21:50)
[2020-07-29] MEDS ORDERED: magnesium hydroxide 30ml (MOM) UD suspension PO PRN (21:50)
[2020-07-29] MEDS ORDERED: magnesium 2GM in 50ml NS 50 ML IV PRN (21:50)
[2020-07-29] MEDS ORDERED: nitroGLYCERIN 0.4mg SUBLingual tab SL PRN (21:50)
[2020-07-29] MEDS ORDERED: MELO-102 PO (21:55)
[2020-07-29] MEDS ORDERED: RISP1TAB98 PO (21:55)
[2020-07-29] MEDS ORDERED: PANT20TA18 PO (21:55)
[2020-07-29] MEDS ORDERED: OXYB5TAB16 PO (21:55)
[2020-07-29] MEDS ORDERED: HYDR-3686 PO (22:01)
[2020-07-29 22:27] LABS: COLOR,URINE STRAW (Yellow); GLUCOSE, URINE NEGATIVE (Neg); KETONES,URINE NEGATIVE (Neg); LEUKOCYTE ESTERASE ,URINE LARGE (Neg); NITRITES, URINE POSITIVE (Neg); OCCULT BLOOD,URINE NEGATIVE (Neg); PROTEIN,URINE NEGATIVE (Neg); UROBILINOGEN,URINE 0.2 E.U/dL (0.2-1.0)
[2020-07-29 22:37] LABS: CLARITY,URINE SLIGHTLY CLOUDY (Clear); UA COLLECTION TYPE CLN CATCH MIDSTREAM
[2020-07-29 22:40] LABS: BACTERIA,URINE 3+ /HPF (Neg); MUCUS STRANDS NONE SEEN /LPF (Neg); RBC,URINE NONE SEEN /HPF (0-2); SQUAMOUS EPITHELIAL CELL,UR FEW /LPF (FEW); WBC CLUMPS,URINE MODERATE /HPF (NEGATIVE); WBC,URINE 20-30 /HPF (0-4)
[2020-07-29] MEDS ORDERED: dextrose ORAL solution 15 GM/59 ML bottle PO PRN ×2 (22:50)
[2020-07-29] MEDS ORDERED: MESSAGE TO PHARMACY PO ONE (22:50)
[2020-07-29] MEDS ORDERED: insulin Lispro (HumaLOG) vial - multi-dose SQ SCH (22:50)
[2020-07-29] MEDS ORDERED: dextrose 50%-water 50ml dispensing syringe IV PRN ×2 (22:50)
[2020-07-29] MEDS ORDERED: glucagon, human recombinant 1mg kit SUBCUT PRN (22:50)
[2020-07-30] VITALS (12 sets, daily range): BP systolic 145–185; BP diastolic 64–87
[2020-07-30 00:33] LABS: HEMOGLOBIN A1C 8.6 % (4.5-6.2)
[2020-07-30 03:56] LABS: BASOPHILS # (AUTO) 0.1 X10'3 (0-0.2); BASOPHILS % (AUTO) 0.8 % (0-1); EOSINOPHILS # (AUTO) 0.5 X10'3 (0-0.9); HEMATOCRIT 37.1 % (35.0-45.0); HEMOGLOBIN 12.8 g/dl (12.0-16.0); LYMPHOCYTES # (AUTO) 1.9 X10'3 (1.1-4.8); LYMPHOCYTES % (AUTO) 29.9 % (21-51); MEAN CORPUSCULAR HEMOGLOBIN 29.9 PG (27.0-31.0); MEAN CORPUSCULAR HGB CONC 34.4 g/dL (33.0-36.5); MEAN PLATELET VOLUME 7.9 FL (7.4-10.4); MONOCYTES # (AUTO) 0.5 X10'3 (0-0.9); MONOCYTES % (AUTO) 7.7 % (2-12); NEUTROPHILS # (AUTO) 3.5 X10'3 (1.8-7.7); NEUTROPHILS % (AUTO) 54.6 % (42-75); PLATELET COUNT 164 X10'3 (140-440); RED BLOOD COUNT 4.27 X10'6 (4.20-5.60); RED CELL DISTRIBUTION WIDTH 13.1 % (11.5-14.5); WHITE BLOOD COUNT 6.5 X10'3 (4.5-11.0)
[2020-07-30 04:10] LABS: ALANINE AMINOTRANSFERASE 21 U/L (12-78); ALBUMIN 3.6 G/DL (3.4-5.0); ALBUMIN/GLOBULIN RATIO 1.2 (1.1-1.5); ALKALINE PHOSPHATASE 60 IU/L (46-116); ANION GAP 6 (8-16); ASPARTATE AMINO TRANSFERASE 16 U/L (10-37); BILIRUBIN,TOTAL 0.2 MG/DL (0.1-1.0); BLOOD UREA NITROGEN 22 MG/DL (7-18); BUN/CREATININE RATIO 19.5 (6.6-38.0); CALCIUM 8.9 MG/DL (8.5-10.1); CHLORIDE 106 MMOL/L (99-107); CREATININE 1.13 MG/DL (0.40-0.90); GLUCOSE 120 MG/DL (70-104); POTASSIUM 3.8 MMOL/L (3.5-5.1); SODIUM 139 MMOL/L (135-145); TOTAL CARBON DIOXIDE 27.2 MMOL/L (24-32); TOTAL PROTEIN 6.7 G/DL (6.4-8.2); eGFR 48 ML/MIN
[2020-07-30 04:14] LABS: CHOL/HDL RATIO 5.5 (0.00-4.99); CHOLESTEROL 183 MG/DL (0-200); HDL CHOLESTEROL 33 MG/DL (35-60); LDL CHOLESTEROL 92 MG/DL (50-100); MAGNESIUM 1.4 MG/DL (1.5-2.4); TRIGLYCERIDES 228 MG/DL (20-135)
--- NOTE | 2020-07-30 06:24 | NUR ---
Problems reprioritized. Patient report given, questions answered & plan of care reviewed with ARIAS HENSON.
--- NOTE | 2020-07-30 06:27 | NUR ---
Patient in room PCU 3015. I have received report from ARIAS York and had the opportunity to ask questions and assume patient care. Pt sitting up resting in bed at change of shift, no signs of distress noted.
--- NOTE | 2020-07-30 07:07 | NUR ---
Patient in room PCU 3015. I have received report from ARIAS Figueroa and had the opportunity to ask questions and assume patient care.
[2020-07-30] MEDS ORDERED: INSU3INS2 SQ (07:19)
[2020-07-30] MEDS ORDERED: ALBU17AE26 IH (07:19)
[2020-07-30] MEDS ORDERED: pantoprazole 40mg Tablet.DR PO SCH (07:30)
[2020-07-30] MEDS ORDERED: heparin, porcine 5000 units/ml vial SQ SCH (08:00)
[2020-07-30] MEDS ORDERED: K and/or MAG REPLACEMENT MC SCH (08:00)
[2020-07-30] MEDS: normal saline 1000ml 1,000 ML IV SCH (08:01)
[2020-07-30] MEDS ORDERED: hydrOXYzine 25 MG tablet PO PRN (10:40)
[2020-07-30] MEDS ORDERED: albuterol 2.5 MG/3 ML nebule NEB PRN (10:40)
[2020-07-30] MEDS ORDERED: losartan 25mg tablet PO SCH (10:45)
--- NOTE | 2020-07-30 12:35 | NUR ---
Paged Dr Ramos PAGER ID: [phone] MESSAGE: Re: Elizabeth Lopez [id number] FYI Pt's Cherelle Scan has resulted. Please advise for any further instructions. Thank you Matilda [phone]
--- NOTE | 2020-07-30 14:19 | NUR ---
DM Consult: A1C 8.6 w/ hx DM and noted TG 228 w/ HDL 33 this admit. Pt admit DX r/o ACS s/p stress test. Pt seen by RD for written/verbal DM/HH diet eds w/ RD contact information provided. Pt reports no questions/concerns does note issues chewing meats/veggies r/t edentulism; requests chopped meats/soft to chew foods once PO. Pt NPO at this time though dietary notified of preferences for when diet advances. RD encouraged pt to contact dietitian's office if further questions/concerns. Addendum: 07/30/20 at [address] Amended: Links added.
[2020-07-30] MEDS ORDERED: cloNIDine 0.1 mg tablet PO PRN (15:05)
[2020-07-30] MEDS ORDERED: metoprolol succinate 25mg (24-HOUR) SR. Tablet PO SCH (15:05)
[2020-07-30] MEDS ORDERED: aspirin 325mg tablet PO SCH (15:05)
[2020-07-30] MEDS ORDERED: amLODIPine 5mg tablet PO SCH (15:05)
[2020-07-30] MEDS ORDERED: METO-395 PO (16:05)
[2020-07-30] MEDS ORDERED: ASPI-1 PO (16:05)
[2020-07-30] MEDS ORDERED: NOR5T PO (16:05)
[2020-07-30] MEDS ORDERED: NITR0.4T48 SL (16:10)
[2020-07-30] MEDS ORDERED: metFORMIN 500mg tablet PO SCH (17:00)
[2020-07-30] MEDS ORDERED: CIPR250T4 PO (17:08)
--- NOTE | 2020-07-30 17:46 | NUR ---
pt discharged at 1740 pm. She was stable and oriented *4 and all her belonging was with her. The patient educated about her medical condition and taught him about how to follow her appointments with clinical social work aide and gave her time to ask about her orders and instructions. We called for her to [employer] and during this time she called to her to make sure he is at home and after making sure about him, she carried out by wheelchair to the outside of the hospital for getting in the Taxi.
--- NOTE | 2020-07-30 17:56 | NUR ---
[place] documentation: I have reviewed and agree with all interventions, assessments performed and documented by ARIAS Ruiz. ARIAS Ruiz needs a lot of redirection with instructions. I asked her to chart more on her assessment due to them not being thorough enough. I monitored her closely throughout the day.
--- NOTE | 2020-07-30 17:58 | NUR ---
[place] Medication Administration: For this medication-pass time frame, all medication were reviewed, dispensed, administered and documented per hospital policy by ARIAS Ruiz. I monitored ARIAS Ruiz closely due to needing educated on the administration of medications.
[2020-07-30] MEDS ORDERED: oxybutynin 5mg tablet PO SCH (20:00)
[2020-07-30] MEDS ORDERED: ciprofloxacin 250mg tablet PO SCH (20:00)
[2020-07-30] MEDS ORDERED: traZODone 150mg tablet PO SCH (21:00)
[2020-07-30] MEDS ORDERED: insulin glargine (Lantus) pen - multi-dose SQ SCH (21:00)
[2020-07-30] MEDS ORDERED: risperiDONE 0.5mg tablet PO SCH (21:00)
[2020-07-31] MEDS ORDERED: non-formulary drug (Pantoprazole Sodium (Protonix) 1 TAB) PO SCH (08:00)
[2020-07-31] MEDS ORDERED: linagliptin 5mg tablet PO SCH (08:00)
[2020-07-31] MEDS ORDERED: glipizide 5mg tablet PO SCH (08:00)
[2020-07-31] MEDS ORDERED: pravastatin 40mg tablet PO SCH (08:00)
== END 2020-07-30 17:35 | disposition home or self-care (01) | DRG 392 ==
LOC: ER 20:16 → ED HOLD 21:48 → PCU 3S 23:55
PROVIDERS: ADMIT Internal Medicine; ATTEND Internal Medicine
PROC: 4A02XM4 Measurement of Cardiac Total Activity, External Approach (ICD-10-PCS; principal; 2020-07-30)
PROC: 3E073KZ Introduction of Other Diagnostic Substance into Coronary Artery, Percutaneous Approach (ICD-10-PCS; 2020-07-30)
DX: K21.9 Gastro-esophageal reflux disease without esophagitis (principal); E11.65 Type 2 diabetes mellitus with hyperglycemia; E78.5 Hyperlipidemia, unspecified; F12.90 Cannabis use, unspecified, uncomplicated; F31.9 Bipolar disorder, unspecified; I10 Essential (primary) hypertension; M19.90 Unspecified osteoarthritis, unspecified site; Z79.82 Long term (current) use of aspirin; Z82.49 Family history of ischemic heart disease and other diseases of the circulatory system; Z87.891 Personal history of nicotine dependence; Z88.0 Allergy status to penicillin
CPT/HCPCS: 36415; 71045; 78452; 80053; 80061; 81001; 82948; 83036; 83735; 83880; 84484; 85025; 87077; 87081; 87088; 87186; 93005; 93017; 93306; 96372; 97110; 97116; 97161; 99285; A9500; G0378; J1644; J1815; J2785; J7030

== ENCOUNTER 2021-08-01 17:00 | Inpatient (IN) | payer OTHER, MEDICAID ==
[~2021-08-01] VITALS: Ht 144.8 cm; Wt 50.0 kg
[~2021-08-01 17:00] MED LIST changes: +AMLO5TAB4 PO; -ESCI5SOL4 PO; -GLIP5TAB13 PO; +HYDR-3686 PO; +INSU100V9 SQ; -LIDO1ADH TOP; -LINA5TAB4 PO; -LORA-269 PO; -LOSA25TA41 PO; +LOSA50TA3 PO; +MELO-102 PO; +METF-436 PO; -METF500T PO; +METO-395 PO; -OMEG1CAP PO; -PANT-47 PO; +PANT40TA54 PO; -PRAV20TA4 PO; +PRAV40TA3 PO; +RISP0.5T65 PO
[2021-08-01] MEDS ORDERED: ASPI-1071 PO ×2 (18:04)
[2021-08-01] MEDS ORDERED: GLUC1KIT2 SUBCUT ×2 (18:04)
[2021-08-01] MEDS ORDERED: NYSPWD TP ×2 (18:04)
[2021-08-01] MEDS ORDERED: NICO-907 BC ×2 (18:04)
[2021-08-01] MEDS ORDERED: ALBU2.5V7 NEB ×2 (18:04)
[2021-08-01] MEDS ORDERED: SULF1TAB45 PO (18:04)
[2021-08-01] MEDS ORDERED: QUET100T34 PO (18:04)
[2021-08-01] MEDS ORDERED: magnesium 4gm in 100ml NS 100 ML IV PRN (19:25)
[2021-08-01] MEDS ORDERED: DEXTROSE 15 GM of carb/4 tabs (each vial/BOTTLE has 4 tablets) PO PRN ×2 (19:25)
[2021-08-01] MEDS ORDERED: magnesium Cl slow-release 64mg tablet PO PRN (19:25)
[2021-08-01] MEDS ORDERED: MESSAGE TO PHARMACY PO ONE (19:25)
[2021-08-01] MEDS ORDERED: magnesium hydroxide 30ml (MOM) UD suspension PO PRN (19:25)
[2021-08-01] MEDS ORDERED: bisacodyl 10mg suppository rectal RC PRN (19:25)
[2021-08-01] MEDS ORDERED: potassium CL 10mEq/100ml bag 100 ML IV PRN (19:25)
[2021-08-01] MEDS ORDERED: metoclopramide 5 mg/ml inj IV PRN (19:25)
[2021-08-01] MEDS ORDERED: dextrose 50%-water 50ml dispensing syringe IV PRN ×2 (19:25)
[2021-08-01] MEDS ORDERED: ondansetron 4mg rapidly disintigrating tab PO PRN (19:25)
[2021-08-01] MEDS ORDERED: POTASSIUM BICARB 20meq eff tab 20 MEQ TABLET.EFF PO PRN ×2 (19:25)
[2021-08-01] MEDS ORDERED: glucagon, human recombinant 1mg kit SUBCUT PRN (19:25)
[2021-08-01] MEDS ORDERED: mag hydrox/Alum hydrox/simeth 30ml oral suspension PO PRN (19:25)
[2021-08-01] MEDS ORDERED: ondansetron/PF 4mg/2ml inj IV PRN (19:25)
[2021-08-01] MEDS ORDERED: magnesium 2GM in 50ml NS 50 ML IV PRN (19:25)
[2021-08-01] MEDS: docusate sod 100mg capsule PO SCH (20:00)
[2021-08-01] MEDS: K and/or MAG REPLACEMENT MC SCH (20:00)
[2021-08-01 21:30] VITALS: BP 100/44
[2021-08-01] MEDS: normal saline 1000ml 1,000 ML IV SCH (21:49)
[2021-08-01 22:53] LABS: MAGNESIUM 1.6 MG/DL (1.5-2.4); POTASSIUM 4.6 MMOL/L (3.5-5.1)
[2021-08-01] MEDS: insulin glargine (Lantus) pen - multi-dose SQ SCH (22:56)
[2021-08-01] MEDS: insulin Lispro (HumaLOG) vial - multi-dose SQ SCH (22:57)
--- NOTE | 2021-08-01 23:52 | NUR ---
PT CAME FROM [facility] AND WAS ON LEVEL 6 FOR DM PROTOCOL. BS TONIGHT WAS 248 EVEN AFTER RECEIVING INSULIN AFTER DINNER ON [facility] FLOOR. SO DECIDED TO CONTINUE LEVEL 6 ON THIS FLOOR.
[2021-08-02 01:34] VITALS: BP 102/78
[2021-08-02] MEDS: normal saline 1000ml 1,000 ML IV SCH ×3 (05:25→23:44)
--- NOTE | 2021-08-02 06:21 | NUR ---
Problems reprioritized. Patient report given, questions answered & plan of care reviewed with palmira Ruiz.
[2021-08-02 06:26] LABS: BASOPHILS % (AUTO) 0.5 % (0-1); EOSINOPHILS # (AUTO) 0.4 X10'3 (0-0.9); EOSINOPHILS % (AUTO) 7.5 % (0-6); HEMATOCRIT 31.3 % (35.0-45.0); HEMOGLOBIN 10.5 g/dl (12.0-16.0); LYMPHOCYTES # (AUTO) 0.3 X10'3 (1.1-4.8); LYMPHOCYTES % (AUTO) 5.3 % (21-51); MEAN CORPUSCULAR HGB CONC 33.5 g/dL (33.0-36.5); MEAN CORPUSCULAR VOLUME 83.7 FL (78-98); MEAN PLATELET VOLUME 8.6 FL (7.4-10.4); MONOCYTES # (AUTO) 0.4 X10'3 (0-0.9); MONOCYTES % (AUTO) 7.6 % (2-12); NEUTROPHILS # (AUTO) 3.9 X10'3 (1.8-7.7); NEUTROPHILS % (AUTO) 79.1 % (42-75); PLATELET COUNT 119 X10'3 (140-440); RED BLOOD COUNT 3.74 X10'6 (4.20-5.60); RED CELL DISTRIBUTION WIDTH 14.3 % (11.5-14.5); WHITE BLOOD COUNT 4.9 X10'3 (4.5-11.0)
[2021-08-02 06:44] LABS: ALANINE AMINOTRANSFERASE 691 U/L (12-78); ALBUMIN 2.4 G/DL (3.4-5.0); ALBUMIN/GLOBULIN RATIO 0.7 (1.1-1.5); ALKALINE PHOSPHATASE 205 IU/L (46-116); ANION GAP 10 (8-16); ASPARTATE AMINO TRANSFERASE 168 U/L (10-37); BLOOD UREA NITROGEN 50 MG/DL (7-18); BUN/CREATININE RATIO 27.3 (6.6-38.0); CALCIUM 8.1 MG/DL (8.5-10.1); CHLORIDE 103 MMOL/L (99-107); CREATININE 1.83 MG/DL (0.40-0.90); GLUCOSE 220 MG/DL (70-104); MAGNESIUM 1.7 MG/DL (1.5-2.4); POTASSIUM 4.3 MMOL/L (3.5-5.1); SODIUM 134 MMOL/L (135-145); TOTAL CARBON DIOXIDE 21.2 MMOL/L (24-32); eGFR 28 ML/MIN
--- NOTE | 2021-08-02 07:01 | NUR ---
Received patient report by ARIAS Ragsdale
[2021-08-02 07:16] VITALS: BP 110/48
--- NOTE | 2021-08-02 07:23 | NUR ---
PAGER ID: [phone] MESSAGE: [phone] Jessica med rec needs addressed. patients procal was high, no antibiotics ordered. Your H&P mentioned meropenem? burke [phone]
[2021-08-02] MEDS ORDERED: glucagon, human recombinant 1mg kit SUBCUT PRN (07:50)
[2021-08-02] MEDS ORDERED: hydrOXYzine 25 MG tablet PO PRN (07:50)
[2021-08-02] MEDS ORDERED: albuterol 2.5 MG/3 ML nebule NEB PRN (07:50)
[2021-08-02] MEDS ORDERED: NICOTINE POLACRILEX 2 MG LOZENGE BC PRN (07:50)
[2021-08-02] MEDS: docusate sod 100mg capsule PO SCH ×2 (08:00→20:00)
[2021-08-02] MEDS: metoprolol succinate 25mg (24-HOUR) SR. Tablet PO SCH (08:00)
[2021-08-02] MEDS ORDERED: amLODIPine 5mg tablet PO SCH (08:00)
[2021-08-02] MEDS: K and/or MAG REPLACEMENT MC SCH ×2 (08:00→20:00)
[2021-08-02] MEDS ORDERED: losartan 50mg tablet PO SCH (08:00)
[2021-08-02] MEDS: pantoprazole 40mg Tablet.DR PO SCH (08:58)
[2021-08-02] MEDS: aspirin 81mg, enteric-coated 1 TAB TABLET.DR PO SCH (08:59)
[2021-08-02] MEDS: insulin Lispro (HumaLOG) vial - multi-dose SQ SCH ×3 (09:00→18:38)
--- NOTE | 2021-08-02 09:08 | NUR ---
Diabetes consult: Noted pt w/ hx of DM A1c 11.5, previously from [facility]. Written DM ed w/ RD contact info placed in pt chart Addendum: 08/02/21 at [address] Amended: Links added.
[2021-08-02] MEDS ORDERED: pneumococcal 23-VAL P-sac vacc 25 mcg/0.5ml vial IMVAC ONE (10:00)
[2021-08-02 11:15] VITALS: BP 113/51
--- NOTE | 2021-08-02 12:04 | NUR ---
WOUND INFECTION EDUCATION PROVIDED BY WOUND CARE 1. Patient instructed to call their primary doctor, or go the ED immediately if any of the following symptoms occur: * Increased pain in wound * Increase in drainage from the wound * Redness in the skin surrounding the wound * Warmth in the skin surrounding the wound * Bleeding from the wound * Temperature of 101 or greater 2. If any of these occur while in the hospital tell a nurse immediately. Addendum: 08/02/21 at 1205 by Karmen West LVN Amended: Links added.
[2021-08-02] MEDS ORDERED: QUEtiapine 25mg tablet PO PRN (14:30)
[2021-08-02] MEDS: cefTRIAXone 1g/NS 100ml IVPB 100 ML IV SCH (14:39)
[2021-08-02 14:59] VITALS: BP 108/59
[2021-08-02] MEDS: nystatin 15 GM powder TP SCH ×2 (16:03→20:49)
--- NOTE | 2021-08-02 17:55 | NUR ---
This RN agrees with NATHANAEL Arcos
[2021-08-02 18:00] VITALS: BP 131/67
--- NOTE | 2021-08-02 18:08 | NUR ---
patient report was given to ARIAS Peraza.
[2021-08-02] MEDS: quetiapine 100mg tablet PO SCH (20:53)
[2021-08-02] MEDS: OLANZapine 2.5MG tablet PO SCH (20:53)
[2021-08-02] MEDS: insulin glargine (Lantus) pen - multi-dose SQ SCH (21:01)
[2021-08-02 22:00] VITALS: BP 155/57
[2021-08-03 06:00] VITALS: BP 122/62
--- NOTE | 2021-08-03 06:38 | NUR ---
Received patient report from ARIAS Peraza.
--- NOTE | 2021-08-03 06:40 | NUR ---
Problems reprioritized. Patient report given, questions answered & plan of care reviewed with ARIAS Ruiz.
[2021-08-03] MEDS: cefTRIAXone 1g/NS 100ml IVPB 100 ML IV SCH (07:01)
[2021-08-03] MEDS: aspirin 81mg, enteric-coated 1 TAB TABLET.DR PO SCH (07:13)
[2021-08-03] MEDS: metoprolol succinate 25mg (24-HOUR) SR. Tablet PO SCH (07:13)
[2021-08-03] MEDS: OLANZapine 2.5MG tablet PO SCH ×2 (07:13→20:24)
[2021-08-03] MEDS: pantoprazole 40mg Tablet.DR PO SCH (07:13)
[2021-08-03] MEDS: nystatin 15 GM powder TP SCH ×2 (07:14→20:46)
[2021-08-03] MEDS: docusate sod 100mg capsule PO SCH ×2 (07:14→20:00)
[2021-08-03 07:27] LABS: BASOPHILS % (AUTO) 0.4 % (0-1); EOSINOPHILS # (AUTO) 0.5 X10'3 (0-0.9); EOSINOPHILS % (AUTO) 17.2 % (0-6); HEMATOCRIT 32.1 % (35.0-45.0); HEMOGLOBIN 10.5 g/dl (12.0-16.0); LYMPHOCYTES # (AUTO) 0.3 X10'3 (1.1-4.8); LYMPHOCYTES % (AUTO) 11.2 % (21-51); MEAN CORPUSCULAR HEMOGLOBIN 27.4 PG (27.0-31.0); MEAN CORPUSCULAR HGB CONC 32.9 g/dL (33.0-36.5); MEAN CORPUSCULAR VOLUME 83.3 FL (78-98); MEAN PLATELET VOLUME 8.9 FL (7.4-10.4); MONOCYTES # (AUTO) 0.3 X10'3 (0-0.9); MONOCYTES % (AUTO) 10.5 % (2-12); NEUTROPHILS # (AUTO) 1.8 X10'3 (1.8-7.7); NEUTROPHILS % (AUTO) 60.7 % (42-75); PLATELET COUNT 173 X10'3 (140-440); RED BLOOD COUNT 3.85 X10'6 (4.20-5.60); RED CELL DISTRIBUTION WIDTH 14.3 % (11.5-14.5)
[2021-08-03 07:46] LABS: MICROCYTOSIS 1+; PLATELET ESTIMATE NORMAL; TOTAL CELLS COUNTED 100
[2021-08-03 07:47] LABS: ALANINE AMINOTRANSFERASE 435 U/L (12-78); ALBUMIN 2.4 G/DL (3.4-5.0); ALBUMIN/GLOBULIN RATIO 0.6 (1.1-1.5); ALKALINE PHOSPHATASE 252 IU/L (46-116); ANION GAP 4 (8-16); ASPARTATE AMINO TRANSFERASE 54 U/L (10-37); BILIRUBIN,TOTAL 0.5 MG/DL (0.1-1.0); BLOOD UREA NITROGEN 33 MG/DL (7-18); BUN/CREATININE RATIO 24.6 (6.6-38.0); CALCIUM 9.1 MG/DL (8.5-10.1); CHLORIDE 111 MMOL/L (99-107); CREATININE 1.34 MG/DL (0.40-0.90); GLUCOSE 89 MG/DL (70-104); MAGNESIUM 1.6 MG/DL (1.5-2.4); POTASSIUM 4.6 MMOL/L (3.5-5.1); SODIUM 137 MMOL/L (135-145); TOTAL CARBON DIOXIDE 21.6 MMOL/L (24-32); TOTAL PROTEIN 6.3 G/DL (6.4-8.2); eGFR 39 ML/MIN
[2021-08-03] MEDS: K and/or MAG REPLACEMENT MC SCH ×2 (08:00→20:00)
[2021-08-03] MEDS: insulin Lispro (HumaLOG) vial - multi-dose SQ SCH ×3 (09:25→19:01)
[2021-08-03 18:00] VITALS: BP 148/50
--- NOTE | 2021-08-03 18:10 | NUR ---
Patient report was given to ARIAS Peraza.
[2021-08-03] MEDS: quetiapine 100mg tablet PO SCH (20:23)
--- NOTE | 2021-08-03 20:41 | NUR ---
Patient in room ORTHO 4017. I have received report from ARIAS Ruiz and had the opportunity to ask questions and assume patient care.
[2021-08-03] MEDS: insulin glargine (Lantus) pen - multi-dose SQ SCH (21:00)
[2021-08-03 22:00] VITALS: BP 146/74
--- NOTE | 2021-08-03 23:30 | NUR ---
Dr. Sprague has been notified regarding pt. blood sugar of 51.Pt. has been traded . gave me a order to hold her Africa montero.We will continue with pt. care.
[2021-08-04] MEDS: traZODone 50mg tablet PO PRN ×2 (00:43→20:44)
[2021-08-04 05:00] VITALS: BP 140/77
[2021-08-04 06:00] LABS: BASOPHILS % (AUTO) 0.4 % (0-1); EOSINOPHILS # (AUTO) 0.6 X10'3 (0-0.9); EOSINOPHILS % (AUTO) 14.8 % (0-6); HEMATOCRIT 32.9 % (35.0-45.0); HEMOGLOBIN 10.7 g/dl (12.0-16.0); LYMPHOCYTES # (AUTO) 0.6 X10'3 (1.1-4.8); LYMPHOCYTES % (AUTO) 15.3 % (21-51); MEAN CORPUSCULAR HEMOGLOBIN 27.5 PG (27.0-31.0); MEAN CORPUSCULAR HGB CONC 32.6 g/dL (33.0-36.5); MEAN CORPUSCULAR VOLUME 84.2 FL (78-98); MEAN PLATELET VOLUME 8.4 FL (7.4-10.4); MONOCYTES # (AUTO) 0.4 X10'3 (0-0.9); MONOCYTES % (AUTO) 10.7 % (2-12); NEUTROPHILS # (AUTO) 2.2 X10'3 (1.8-7.7); NEUTROPHILS % (AUTO) 58.8 % (42-75); PLATELET COUNT 202 X10'3 (140-440); RED CELL DISTRIBUTION WIDTH 14.6 % (11.5-14.5); WHITE BLOOD COUNT 3.7 X10'3 (4.5-11.0)
[2021-08-04 06:10] LABS: ALANINE AMINOTRANSFERASE 303 U/L (12-78); ALBUMIN 2.7 G/DL (3.4-5.0); ALBUMIN/GLOBULIN RATIO 0.7 (1.1-1.5); ALKALINE PHOSPHATASE 279 IU/L (46-116); ANION GAP 10 (8-16); ASPARTATE AMINO TRANSFERASE 28 U/L (10-37); BILIRUBIN,TOTAL 0.4 MG/DL (0.1-1.0); BLOOD UREA NITROGEN 35 MG/DL (7-18); BUN/CREATININE RATIO 28.5 (6.6-38.0); CALCIUM 9.6 MG/DL (8.5-10.1); CHLORIDE 107 MMOL/L (99-107); CREATININE 1.23 MG/DL (0.40-0.90); GLUCOSE 122 MG/DL (70-104); MAGNESIUM 1.2 MG/DL (1.5-2.4); SODIUM 141 MMOL/L (135-145); TOTAL CARBON DIOXIDE 24.2 MMOL/L (24-32); TOTAL PROTEIN 6.7 G/DL (6.4-8.2); eGFR 44 ML/MIN
--- NOTE | 2021-08-04 06:39 | NUR ---
Problems reprioritized. Patient report given, questions answered & plan of care reviewed with ARIAS Dent.
--- NOTE | 2021-08-04 06:46 | NUR ---
Problems reprioritized. Patient report given, questions answered & plan of care reviewed with ARIAS Dent.
--- NOTE | 2021-08-04 06:56 | NUR ---
Patient in room ORTHO 4009. I have received report from ARIAS Peraza and had the opportunity to ask questions and assume patient care.
[2021-08-04] MEDS: docusate sod 100mg capsule PO SCH ×2 (08:00→20:00)
[2021-08-04] MEDS: K and/or MAG REPLACEMENT MC SCH ×2 (08:00→20:00)
[2021-08-04] MEDS: cefTRIAXone 1g/NS 100ml IVPB 100 ML IV SCH (08:26)
[2021-08-04] MEDS: aspirin 81mg, enteric-coated 1 TAB TABLET.DR PO SCH (08:26)
[2021-08-04] MEDS: OLANZapine 2.5MG tablet PO SCH ×2 (08:27→20:44)
[2021-08-04] MEDS: pantoprazole 40mg Tablet.DR PO SCH (08:27)
[2021-08-04] MEDS: metoprolol succinate 25mg (24-HOUR) SR. Tablet PO SCH (08:27)
[2021-08-04] MEDS: insulin Lispro (HumaLOG) vial - multi-dose SQ SCH ×3 (08:35→18:41)
[2021-08-04 10:00] VITALS: BP 155/77
[2021-08-04] MEDS: nystatin 15 GM powder TP SCH ×2 (11:40→20:51)
[2021-08-04 18:00] VITALS: BP 132/71
--- NOTE | 2021-08-04 18:47 | NUR ---
Problems reprioritized. Patient report given, questions answered & plan of care reviewed with ARIAS Freed.
--- NOTE | 2021-08-04 18:50 | NUR ---
Patient in room ORTHO 4009. I have received report from CHIKIS BIANCHI and had the opportunity to ask questions and assume patient care.
[2021-08-04] MEDS: quetiapine 100mg tablet PO SCH (20:44)
[2021-08-04] MEDS: insulin glargine (Lantus) pen - multi-dose SQ SCH (20:55)
[2021-08-04 22:00] VITALS: BP 138/77
[2021-08-04] MEDS ORDERED: acetaminophen 325mg tablet PO PRN (23:30)
[2021-08-05 04:07] VITALS: BP 132/71
[2021-08-05 06:12] LABS: BASOPHILS % (AUTO) 0.8 % (0-1); EOSINOPHILS # (AUTO) 0.6 X10'3 (0-0.9); HEMATOCRIT 32.9 % (35.0-45.0); HEMOGLOBIN 10.9 g/dl (12.0-16.0); LYMPHOCYTES # (AUTO) 0.9 X10'3 (1.1-4.8); LYMPHOCYTES % (AUTO) 18.7 % (21-51); MEAN CORPUSCULAR HEMOGLOBIN 27.6 PG (27.0-31.0); MEAN CORPUSCULAR HGB CONC 33.1 g/dL (33.0-36.5); MEAN CORPUSCULAR VOLUME 83.2 FL (78-98); MEAN PLATELET VOLUME 8.8 FL (7.4-10.4); MONOCYTES # (AUTO) 0.5 X10'3 (0-0.9); MONOCYTES % (AUTO) 10.2 % (2-12); NEUTROPHILS # (AUTO) 2.8 X10'3 (1.8-7.7); NEUTROPHILS % (AUTO) 57.3 % (42-75); PLATELET COUNT 233 X10'3 (140-440); RED BLOOD COUNT 3.96 X10'6 (4.20-5.60); RED CELL DISTRIBUTION WIDTH 14.6 % (11.5-14.5); WHITE BLOOD COUNT 4.8 X10'3 (4.5-11.0)
--- NOTE | 2021-08-05 06:30 | NUR ---
Problems reprioritized. Patient report given, questions answered & plan of care reviewed with THOR BIANCHI.
[2021-08-05 06:46] LABS: ALANINE AMINOTRANSFERASE 209 U/L (12-78); ALBUMIN 2.7 G/DL (3.4-5.0); ALBUMIN/GLOBULIN RATIO 0.7 (1.1-1.5); ALKALINE PHOSPHATASE 247 IU/L (46-116); ANION GAP 12 (8-16); ASPARTATE AMINO TRANSFERASE 21 U/L (10-37); BILIRUBIN,TOTAL 0.4 MG/DL (0.1-1.0); BLOOD UREA NITROGEN 38 MG/DL (7-18); BUN/CREATININE RATIO 30.2 (6.6-38.0); CALCIUM 9.4 MG/DL (8.5-10.1); CHLORIDE 106 MMOL/L (99-107); CREATININE 1.26 MG/DL (0.40-0.90); GLUCOSE 156 MG/DL (70-104); MAGNESIUM 1.3 MG/DL (1.5-2.4); POTASSIUM 4.5 MMOL/L (3.5-5.1); SODIUM 142 MMOL/L (135-145); TOTAL CARBON DIOXIDE 24.3 MMOL/L (24-32); TOTAL PROTEIN 6.7 G/DL (6.4-8.2); eGFR 42 ML/MIN
--- NOTE | 2021-08-05 08:14 | NUR ---
Initial: Pt transferred from [facility] w/ idiopathic hepatitis and TORIE w/ CKD per EMR. Currently on Heart Healthy/Carb control diet w/ avg ~55% of meals likely close to meeting minimum est nutrient needs at this time. Recommend removing Heart Healthy diet and continuing w/ just Carb control. LBM 6/4 receiving routine colace. Will continue to monitor. Recs: 1. Continue Carb control diet; remove Heart Healthy restriction 2. Bowel care per rx 3. Weekly wts Addendum: 08/05/21 at [address] Amended: Links added.
[2021-08-05] MEDS: cefTRIAXone 1g/NS 100ml IVPB 100 ML IV SCH (08:42)
[2021-08-05] MEDS: docusate sod 100mg capsule PO SCH (08:43)
[2021-08-05] MEDS: pantoprazole 40mg Tablet.DR PO SCH (08:43)
[2021-08-05] MEDS: OLANZapine 2.5MG tablet PO SCH (08:43)
[2021-08-05] MEDS: metoprolol succinate 25mg (24-HOUR) SR. Tablet PO SCH (08:43)
[2021-08-05] MEDS: aspirin 81mg, enteric-coated 1 TAB TABLET.DR PO SCH (08:43)
[2021-08-05] MEDS: nystatin 15 GM powder TP SCH (08:51)
--- NOTE | 2021-08-05 09:32 | NUR ---
PAGER ID: [phone] MESSAGE: LUIS CAYETANO CHRISTENSEN RM 3612 C. MG LEVEL THIS AM IS 1.3. PROTOCOL REPLACEMENT MEDS NOT ORDERED. THANK YOU, LETICIA BIANCHI
[2021-08-05] MEDS: insulin Lispro (HumaLOG) vial - multi-dose SQ SCH ×2 (10:04→15:12)
--- NOTE | 2021-08-05 13:29 | NUR ---
PAGER ID: [phone] MESSAGE: LUIS CAYETANO CHRISTENSEN RM 1111C. MG LEVEL THIS AM IS 1.3, DID YOU WANT TO REORDER MAG REPLACEMENT PROTOCOL MEDS? THANK YOU, LETICIA BIANCHI
[2021-08-05] MEDS ORDERED: magnesium 2GM in 50ml NS 50 ML IV PRN (13:55)
[2021-08-05] MEDS ORDERED: magnesium 4gm in 100ml NS 100 ML IV PRN (13:55)
[2021-08-05] MEDS ORDERED: magnesium Cl slow-release 64mg tablet PO PRN (13:55)
--- NOTE | 2021-08-05 14:20 | NUR ---
promotional table spacer PAGER ID: [phone] MESSAGE: LUIS CHRISTENSEN RM [id number]. PATIENT OK TO GO TO [facility]. NEED DISCHARGE ORDERS TO SEND HER TO [facility] THANK YOU, LETICIA BIANCHI
[2021-08-05] MEDS ORDERED: QUET25TA36 PO ×2 (14:26)
[2021-08-05] MEDS ORDERED: OLAN2.5T28 PO ×4 (14:28)
[2021-08-05] MEDS ORDERED: CEFD300C3 PO (14:30)
[2021-08-05] MEDS: K and/or MAG REPLACEMENT MC SCH (15:00)
[2021-08-05] MEDS ORDERED: K and/or MAG REPLACEMENT MC SCH (20:00)
[2021-08-06] MEDS ORDERED: TRAZ-251 PO (00:24)
[2021-08-06] MEDS ORDERED: QUET-1 PO (00:24)
[2021-08-06] MEDS ORDERED: MYCOL15CR TOP (00:24)
[2021-08-06] MEDS ORDERED: OLAN10TA3 PO (00:24)
[2021-08-06] MEDS ORDERED: QUET100T34 PO (00:24)
[2021-08-06] MEDS ORDERED: NYST30CR2 TP (01:35)
[2021-08-06] MEDS ORDERED: NYSPWD TP (07:12)
[2021-08-06] MEDS ORDERED: NICO-668 MM (07:12)
[2021-08-06] MEDS ORDERED: ASPI-107 PO (07:12)
[2021-08-06] MEDS ORDERED: ALB0.5UD IH (07:12)
[2021-08-06] MEDS ORDERED: OLAN2.5T3 PO ×2 (07:15)
[2021-08-07] MEDS ORDERED: METO-395 PO (13:38)
[2021-08-07] MEDS ORDERED: ASPI-107 PO (13:38)
[2021-08-07] MEDS ORDERED: LOSA50TA3 PO (13:38)
[2021-08-07] MEDS ORDERED: LANTUS SQ (13:38)
[2021-08-07] MEDS ORDERED: NYSPWD TP (13:38)
[2021-08-07] MEDS ORDERED: INSU100V11 SQ (13:38)
[2021-08-07] MEDS ORDERED: NICO-668 MM (13:38)
[2021-08-07] MEDS ORDERED: HYDR-3686 PO (13:38)
[2021-08-07] MEDS ORDERED: TRAZ-251 PO (13:38)
[2021-08-07] MEDS ORDERED: QUET100T34 PO (13:38)
[2021-08-07] MEDS ORDERED: PANT40TA54 PO (13:38)
[2021-08-07] MEDS ORDERED: ALB0.5UD IH (13:38)
[2021-08-07] MEDS ORDERED: AMLO5TAB4 PO (13:38)
== END 2021-08-05 16:09 | DRG 871 ==
LOC: ORTHO 4S 17:00
PROVIDERS: ADMIT Family Medicine; ATTEND Family Medicine
DX: A41.9 Sepsis, unspecified organism (principal); N17.0 Acute kidney failure with tubular necrosis; E87.1 Hypo-osmolality and hyponatremia; J98.11 Atelectasis; K71.2 Toxic liver disease with acute hepatitis; E78.5 Hyperlipidemia, unspecified; K76.0 Fatty (change of) liver, not elsewhere classified; E11.22 Type 2 diabetes mellitus with diabetic chronic kidney disease; F29 Unspecified psychosis not due to a substance or known physiological condition; I12.9 Hypertensive chronic kidney disease with stage 1 through stage 4 chronic kidney disease, or unspecified chronic kidney disease; K80.20 Calculus of gallbladder without cholecystitis without obstruction; N18.9 Chronic kidney disease, unspecified; G89.29 Other chronic pain; K21.9 Gastro-esophageal reflux disease without esophagitis; R16.0 Hepatomegaly, not elsewhere classified; R74.8 Abnormal levels of other serum enzymes; Z87.891 Personal history of nicotine dependence
CPT/HCPCS: 36415; 80053; 82948; 83605; 83735; 84132; 84145; 85007; 85025; 97116; 97161; 97530; G0378; J0696; J1815; J7030; Q0177